=== PATIENT | male | born 1970 | race Two or more races ===

== ENCOUNTER 2025-07-21 22:59 | Inpatient (IN) | payer MEDICAID, OTHER ==
[~2025-07-21] VITALS: Ht 175.3 cm; Wt 108.0 kg
[2025-07-21 23:40] LABS: Hematocrit 43.6 % (41.0-53.0); Hemoglobin 14.8 g/dL (13.5-17.5); Mean Corpuscular Hemoglobin 28.8 pg (28.0-32.0); Mean Corpuscular Volume 84.8 fL (80.0-100.0); Nucleated Red Blood Cells % 0.0 %
[2025-07-21] MEDS: SODIUM CHLORIDE 0.9% 1,000 ML IV ONE (23:41)
[2025-07-21 23:47] LABS: Anion Gap 13 (5-15); Carbon Dioxide 24 mmol/L (20-31); Chloride 106 mmol/L (98-107); Potassium 3.7 mmol/L (3.5-5.1); Sodium 143 mmol/L (136-145)
[2025-07-21 23:48] LABS: Calcium 9.7 mg/dL (8.7-10.4)
[2025-07-21 23:53] LABS: BUN/Creatinine Ratio 10.2 (10.0-20.0); Blood Urea Nitrogen 10 mg/dL (9-23)
[2025-07-21 23:54] LABS: Glucose 121 mg/dL (74-106); Lipase 55 U/L (12-53)
[2025-07-21 23:58] LABS: Lactic Acid w/Reflex 2.6 mmol/L (0.4-2.0)
[2025-07-22 00:07] VITALS: PULSE 91; RESP 17; O2SAT 95
[2025-07-22] MEDS: SODIUM CHLORIDE 0.9% 1,000 ML IV ONE (00:21)
--- NOTE | 2025-07-22 01:30 | ED.PDOC ---
History of Present Illness HPI Comments This patient is a 55-year-old male who arrives the ED today via EMS for evaluation of a seizure event that occurred at home approximately 1 hour prior to arrival. Patient utilize his Vimpat for seizure control and states that is he has been medication compliant. I was able to have a discussion with the daughter who confirmed his medication compliance. Patient appears to have some reduced cognition which according to the daughters related to a prior event. Daughter was nonspecific. Patient was hypertensive and tachycardic at arrival. Chief Complaint: Seizure Time Seen by MD: 23:01 Reviewed Notes: Nurses Notes, Overhauler Helper Notes Allergies: Coded Allergies: NO KNOWN ALLERGIES (Unverified , 07/21/25) Information Source: Patient, Emergency Med Personnel Mode of Arrival: EMS Severity: Moderate Timing: Minutes Duration: Minutes Prehospital treatment: Nurse Practitioner Hospitalist Past Medical History PAST MEDICAL HISTORY: HTN, Seizures Surgical History: Denies all surgeries Family History Family History: Reviewed,noncontributory to illness, No family hx of Cancer, No family hx of DM, No family hx of Heart ken, No family hx of HTN, No family hx of Kidney ken, No family hx of Liver ken, No family hx of Lung ken, No family hx of Stroke Social History Smoker: Non-Smoker Alcohol: Denies ETOH Use Drugs: Denies Drug Use Lives In: Home Constitutional: reports: weakness; denies: chills, diaphoresis, fatigue, fever, malaise, sweats, others EENTM: denies: blurred vision, double vision, ear bleeding, ear discharge, ear drainage, ear pain, ear ringing, eye pain, eye redness, hearing loss, mouth pain, mouth swelling, nasal discharge, nose bleeding, nose congestion, nose pain, photophobia, tearing, throat pain, throat swelling, voice changes, others Respiratory: denies: cough, hemoptysis, orthopnea, SOB at rest, shortness of breath, SOB with excertion, stridor, wheezing, others Cardiovascular: denies: chest pain, dizzy spells, diaphoresis, Dyspnea on exertion, edema, irregular heart beat, left arm pain, lightheadedness, palpitations, PND, syncope, others Gastrointestinal: denies: abdomen distended, abdominal pain, blood streaked bowels, constipated, diarrhea, dysphagia, difficulty swallowing, hematemesis, melena, nausea, poor appetite, poor fluid intake, rectal bleeding, rectal pain, vomiting, others Genitourinary: denies: burning, dysuria, flank pain, frequency, hematuria, incontinence, penile discharge, penile sore, pain, testicle pain, testicle swelling, urgency, others Neurological: reports: seizure; denies: dizziness, fainting, headache, left sided numbness, left sided weakness, numbness, paresthesia, pre-existing deficit, right sided numbness, right sided weakness, speech problems, tingling, tremors, weakness, others Integumetry: denies: bruises, change in color, change in hair/nails, dryness, laceration, lesions, lumps, rash, wounds, others Allergic/Immunocompromised: denies: Difficulty Healing, Frequent Infections, Hives, Itching, others Hematologic/Lymphatic: denies: anemia, blood clots, easy bleeding, easy bruising, swollen glands, others Endocrine: denies: excessive hunger, excessive sweating, excessive thirst, excessive urination, flushing, intolerance to cold, intolerance to heat, unexplained weight gain, unexplained weight loss, others Psychiatric: denies: anxiety, bipolar disorder, depression, hopeless, panic disorder, schizophrenia, sleepless, suicidal, others Physical Exam General Appearance: Mild Distress (Patient appears weak and confused at time of evaluation.), Normal HEENT: Head (Unremarkable cranial evaluation. No signs of trauma. No skull depressions or deformities.), Normal ENT Inspection, Pharynx Normal, TMs Normal Neck: Full Range of Motion, Non-Tender, Normal, Normal Inspection Respiratory: Chest Non-Tender, Lungs Clear, No Accessory Muscle Use, No Respiratory Distress, Normal Breath Sounds Cardiovascular: No Edema, No JVD, No Murmur, No Gallop, Normal Peripheral Pulses, Regular Rate/Rhythm Breast Exam: Deferred Gastrointestinal: No Organomegaly, Non Tender, No Pulsatile Mass, Normal Bowel Sounds, Soft Genitalia: Deferred Pelvic: Deferred Rectal: Deferred Extremities: No calf tenderness, No pedal edema Neurologic: Disoriented Cerebellar Function: NOT DONE Reflexes: NOT DONE Skin: Dry, Normal Color, Warm Lymphatic: No Adenopathy Was a procedure done? Was a procedure done?: No Differential Dx Considerations may include: Seizure, intracranial neoplasm, sepsis, electrolyte abnormality, medication noncompliant X-Ray, Labs, Meds, VS Vital Signs Date Time Temp Pulse Resp B/P (MAP) Pulse Ox O2 Delivery O2 Flow Rate FiO2 07/22/25 00:07 91 17 95 Room Air* 0 21 07/22/25 00:07 91 17 138/102 (114) 95 07/21/25 22:59 98.0 109 18 158/100 96 98.0 Lab Test 07/22/25 00:29 07/22/25 00:12 07/21/25 23:23 Range/Units Troponin I High Sensitivity < 3 L < 3 L </=54 ng/L POC Glucose 113 H 70-106 mg/dl White Blood Count 7.5 4.4-10.8 10^3/uL Red Blood Count 5.14 4.5-5.90 10^6/uL Hemoglobin 14.8 13.5-17.5 g/dL Hematocrit 43.6 41.0-53.0 % Mean Corpuscular Volume 84.8 80.0-100.0 fL Mean Corpuscular Hemoglobin 28.8 28.0-32.0 pg Mean Corpuscular Hemoglobin Concent 34.0 32.0-36.0 g/dL Red Cell Distribution Width 13.3 11.8-14.3 % Platelet Count 189 140-450 10^3/uL Mean Platelet Volume 8.7 6.9-10.8 fL Neutrophils (%) (Auto) 66.4 37.0-80.0 % Lymphocytes (%) (Auto) 23.3 10.0-50.0 % Monocytes (%) (Auto) 8.5 0.0-12.0 % Eosinophils (%) (Auto) 1.5 0.0-7.0 % Basophils (%) (Auto) 0.3 0.0-2.0 % Neutrophils # (Auto) 5.0 1.6-8.6 10 ^3/uL Lymphocytes # (Auto) 1.8 0.4-5.4 10 ^3/uL Monocytes # (Auto) 0.6 0-1.3 10 ^3/uL Eosinophils # (Auto) 0.1 0-0.8 10 ^3/uL Basophils # (Auto) 0 0-0.2 10 ^3/uL Nucleated Red Blood Cells 0.0 % Sodium Level 143 136-145 mmol/L Potassium Level 3.7 3.5-5.1 mmol/L Chloride Level 106 98-107 mmol/L Carbon Dioxide Level 24 20-31 mmol/L Anion Gap 13 5-15 Blood Urea Nitrogen 10 9-23 mg/dL Creatinine 0.98 0.700-1.30 mg/dL Glomerular Filtration Rate Calc 91 >90 mL/min BUN/Creatinine Ratio 10.2 10.0-20.0 Serum Glucose 121 H 74-106 mg/dL Lactic Acid Level 2.6 *H 0.4-2.0 mmol/L Calcium Level 9.7 8.7-10.4 mg/dL B-Type Natriuretic Peptide 0.85 0-100 pg/mL Lipase 55 H 12-53 U/L Current Medications Medications (Trade) Dose Ordered Sig/Vahid Route Start Time Stop Time Status Last Admin Sodium Chloride 1,000 ml @ 250 mls/hr Q4H ONCE IV 07/21/25 23:15 07/22/25 00:06 DC 07/21/25 23:41 Sodium Chloride 1,000 ml @ 1,000 mls/hr Q1H ONCE IV 07/22/25 00:15 07/22/25 01:14 DC 07/22/25 00:21 X-Ray, Labs, Meds, VS Comment All studies performed the ED were evaluated by me personally. Multiple studies were pending at time of this note. Serum laboratories revealed a elevated lactic acid and elevated lipase. Patient will be admitted for neurological evaluation. Additional studies will be reviewed once returned. Time of 1ST Reevaluation: 01:36 Reevaluation 1ST: Improved Consultation: PCP, Neurology Patient Education/Counseling: Diagnosis, Treatment Family Education/Counseling: Diagnosis, Treatment SEPSIS Sepsis Screen Date sepsis recognized/suspect: Jul 21, 2025 Time Sepsis recognized/suspect: 2258 Recent Procedure: No On Antibiotic Therapy: No Respiratory Rate >20: No Heart Rate >90: No Temp<36 C (96.8 F) or >38.3 C: No SBP <90 or MAP <65 mmHG: No New Acute Mental Status Change: No Is the patient on CPAP, BIPAP,: No Physician Orders Heplock Iv (07/21/25 ) Urinalysis (07/21/25 23:06) Troponin-I Hs (07/22/25 02:06) Electrocardigram (07/21/25 23:06) Head Without Contrast (07/22/25 01:31) *Consult Dr. Bettie Bhandari (07/22/25 01:31) Vital Signs Date Time Temp Pulse Resp B/P (MAP) Pulse Ox O2 Delivery O2 Flow Rate FiO2 07/22/25 00:07 91 17 95 Room Air* 0 21 07/22/25 00:07 91 17 138/102 (114) 95 07/21/25 22:59 98.0 109 18 158/100 96 98.0 Laboratory Tests Test 07/21/25 23:23 Lactic Acid Level 2.6 mmol/L (0.4-2.0) *H White Blood Count 7.5 10^3/uL (4.4-10.8) Medications Medications Dose Ordered Sig/Vahid Route Start Time Stop Time Status Last Admin Dose Admin Sodium Chloride 1,000 ml @ 250 mls/hr Q4H ONCE IV 07/21/25 23:15 07/22/25 00:06 DC 07/21/25 23:41 Sodium Chloride 1,000 ml @ 1,000 mls/hr Q1H ONCE IV 07/22/25 00:15 07/22/25 01:14 DC 07/22/25 00:21 Departure 1 Departure Time of Disposition: 01:37 Impression: Primary Impression: Seizure Additional Impressions: Elevated lactic acid level Elevated lipase Disposition: ADMITTED INPATIENT Condition: Fair Discharged With: Self Critical Care Note Critical Care Time?: No Stability Stability form required: No Heart Score Heart Score: Heart Score Response (Comments) Value History N/A 0 EKG N/A 0 Age N/A 0 Risk Factors N/A 0 Troponin N/A 0 Total 0 REZA REYES PAC Jul 22, 2025 01:30
--- NOTE | 2025-07-22 02:40 | DVH ---
EXAM: CT HEAD WITHOUT CONTRAST INDICATION: Seizure TECHNIQUE: CT of the head without intravenous contrast. Radiation Dose : 1. Head: CT Dose: CTDI volume is 60.6 mGy. Dose-length product is 850.16 mGy*cm The dose indicators for CT are the volume Computed Tomography (CT) Dose Index (CTDIvol) and the Dose Length Product (DLP), and are measured in units of mGy and mGy-cm, respectively. These indicators are not patient dose, but values generated from the CT scanner acquisition factors. The report includes radiation exposure data for exposures received during this examination. COMPARISON: None FINDINGS: Brain: No evidence of acute hemorrhage. Lloyd cerebral edema crossing chung-white matter in the l eft superior frontal sinus, underlying a mario hole craniotomy. No pneumocephalus. CSF Spaces: Normal morphology of the lateral ventricles and basilar cisterns. Mild asymmetric sulcal effacement of the left frontoparietal lobes centered around the parenchymal abnormality detailed abov e. Bones/Soft Tissues: No acute osseous findings. Left superior frontal mario hole craniotomy. Orbits/Sinuses/Mastoids: Unremarkable as visualized. IMPRESSION: 1. No acute intracranial abnormality. 2. Left frontal lobe edema and local regional mass effect underlying a mario hole craniotomy, which ap pears nonacute. Correlate with history. Radiation optimization: All CT scans at this facility use at least one of these dose optimization brunilda hniques: automated exposure control mA and/or kV adjustment per patient size (includes targeted exam s where dose is matched to clinical indication) or iterative reconstruction.
[2025-07-22] MEDS ORDERED: DOCUSATE SOD 100 MG CAP PO PRN (04:00)
[2025-07-22] MEDS ORDERED: LORazepam 2MG/ML-1ML VIAL IV PRN (04:00)
[2025-07-22] MEDS ORDERED: HYDROcodone-ACET 5/325MG TAB PO PRN (04:00)
[2025-07-22] MEDS ORDERED: ONDANSETRON HCL 4 MG/2 ML VIAL IV PRN (04:00)
[2025-07-22] MEDS ORDERED: ACETAMINOPHEN 325 MG TAB PO PRN (04:00)
--- NOTE | 2025-07-22 04:18 | DVHHP2 ---
History of Present Illness Reason for Visit: Seizure History of Present Illness The patient is a 55-year-old male with past medical history of hypertension and seizures who presented to [facility] ED for evaluation of seizures activity. As reported by EMS, patient was noted to have seizures activity at home, currently compliant on Vimpat for seizures control. Patient appears to have some reduced cognition which according to the daughters related to a prior event, but non was nonspecific Patient was seen and evaluated in the ED, laboratory data shows WBC 7.5, platelets 189, sodium 143, potassium 3.7, BUN 10, creatinine 0.98, glucose 121, calcium 9.7, lactic acid 2.6 trending down to 1.5, BNP 0.85, lipase 55, blood pressure 153/91, heart rate 74, temperature 98.0 F, O2 saturation 95% on oxygen. Head CT showed no acute intracranial abnormality; left frontal lobe edema and local regional mass effect underlying a mario hole craniotomy, which appears nonacute correlate with history. Please see medication orders section in the computer. On my assessment, patient patient not responding to question, no diaphoresis, currently on oxygen, no diarrhea, nausea, vomiting, no fever, no chills. Patient was admitted for further evaluation and medical management. Past Medical History HTN, Seizures Past Surgical History Craniotomy Family History Reviewed, noncontributory to the management of this case. Past Social History The patient lives at home, denies smoking, alcohol or illicit drugs abuse. Review of Systems Constitutional: Yes: Weakness; No: Fever, Chills, Sweats, Malaise, Other Eyes: No: Pain, Vision change, Conjunctivae inflammation, Eyelid inflammation, Other, Redness ENT: No: Ear pain, Ear discharge, Nose pain, Nose discharge, Nose congestion, Mouth pain, Mouth swelling, Throat pain, Throat swelling, Other Respiratory: No: Cough, Dry, Shortness of breath, SOB with excertion, Wheezing, Hemoptysis, Pleuritic Pain, Sputum, Wheezing, Other Cardiovascular: No: Chest Pain, Palpitations, Orthopnea, Paroxysmal Noc. Dyspnea, Edema, Lt Headedness, Other Gastrointestinal: No: Nausea, Vomiting, Abdominal Pain, Diarrhea, Constipation, Melena, Hematochezia, Other Genitourinary: No Dysuria, No Frequency, No Incontinence, No Hematuria, No Retention, No Other Musculoskeletal: No: other, neck pain, shoulder pain, arm pain, back pain, hand pain, leg pain, foot pain Skin: No: Rash, Lesions, Jaundice, Bruising, Other Neurological: Seizures; No: Weakness, Numbness, Incoordination, Change in speech, Confusion, Other Allergies: Coded Allergies: NO KNOWN ALLERGIES (Unverified , 07/21/25) Medications Current Medications Medications Dose Ordered Sig/Vahid Route Start Time Stop Time Status Last Admin Dose Admin Famotidine 20 mg Q12HR IV 07/22/25 10:00 UNV Lorazepam 0.5 mg Q8HP PRN IV 07/22/25 04:00 UNV Clonidine HCl 0.1 mg Q4HP PRN PO 07/22/25 04:00 UNV Losartan Potassium 50 mg DAILY PO 07/22/25 10:00 UNV Patient Own Medication 150 mg BID PO 07/22/25 10:00 UNV Sodium Chloride 10 ml Q8HR IV 07/22/25 06:00 UNV Acetaminophen/ Hydrocodone Bitart 1 tab Q4HP PRN PO 07/22/25 04:00 UNV Ondansetron HCl 4 mg Q4HP PRN IV 07/22/25 04:00 UNV Docusate Sodium 100 mg BIDPRN PRN PO 07/22/25 04:00 UNV Acetaminophen 650 mg Q6HP PRN PO 07/22/25 04:00 UNV Nitroglycerin 0.4 mg Q5MINP PRN SL 07/22/25 04:30 UNV Morphine Sulfate 2 mg Q30M PRN IV 07/22/25 04:30 UNV Exam Vital Signs Vital Signs Date Time Temp Pulse Resp B/P (MAP) Pulse Ox O2 Delivery O2 Flow Rate FiO2 07/22/25 03:00 73 24 153/91 (111) 95 07/22/25 00:07 Room Air* 0 21 07/21/25 22:59 98.0 98.0 General Appearance: Alert, Cooperative, No acute distress, Other (Oriented x2) HEENT: Atraumatic, PERRLA, EOMI, Mucous membr. moist/pink Respiratory: Normal air movement Cardiovascular: Regular rate, Normal S1, Normal S2, No murmurs Abdominal: Normal bowel sounds, Soft, No tenderness, No hepatospenomegaly, No masses Extremities: No clubbing, No cyanosis, No edema, Normal pulses, No tenderness/swelling Skin: No rashes, No breakdown, No significant lesion Neuro: Normal speech, Normal tone, Sensation intact, Cranial nerves 3-12 NL, Reflexes 2+, Other (Generalized weakness) Psych/Mental Status: Mental status NL, Mood NL Labs/Xrays Labs Test 07/22/25 02:48 07/22/25 00:12 07/21/25 23:23 Range/Units Lactic Acid Level 1.5 0.4-2.0 mmol/L Troponin I High Sensitivity < 3 L </=54 ng/L POC Glucose 113 H 70-106 mg/dl White Blood Count 7.5 4.4-10.8 10^3/uL Red Blood Count 5.14 4.5-5.90 10^6/uL Hemoglobin 14.8 13.5-17.5 g/dL Hematocrit 43.6 41.0-53.0 % Mean Corpuscular Volume 84.8 80.0-100.0 fL Mean Corpuscular Hemoglobin 28.8 28.0-32.0 pg Mean Corpuscular Hemoglobin Concent 34.0 32.0-36.0 g/dL Red Cell Distribution Width 13.3 11.8-14.3 % Platelet Count 189 140-450 10^3/uL Mean Platelet Volume 8.7 6.9-10.8 fL Neutrophils (%) (Auto) 66.4 37.0-80.0 % Lymphocytes (%) (Auto) 23.3 10.0-50.0 % Monocytes (%) (Auto) 8.5 0.0-12.0 % Eosinophils (%) (Auto) 1.5 0.0-7.0 % Basophils (%) (Auto) 0.3 0.0-2.0 % Neutrophils # (Auto) 5.0 1.6-8.6 10 ^3/uL Lymphocytes # (Auto) 1.8 0.4-5.4 10 ^3/uL Monocytes # (Auto) 0.6 0-1.3 10 ^3/uL Eosinophils # (Auto) 0.1 0-0.8 10 ^3/uL Basophils # (Auto) 0 0-0.2 10 ^3/uL Nucleated Red Blood Cells 0.0 % Sodium Level 143 136-145 mmol/L Potassium Level 3.7 3.5-5.1 mmol/L Chloride Level 106 98-107 mmol/L Carbon Dioxide Level 24 20-31 mmol/L Anion Gap 13 5-15 Blood Urea Nitrogen 10 9-23 mg/dL Creatinine 0.98 0.700-1.30 mg/dL Glomerular Filtration Rate Calc 91 >90 mL/min BUN/Creatinine Ratio 10.2 10.0-20.0 Serum Glucose 121 H 74-106 mg/dL Calcium Level 9.7 8.7-10.4 mg/dL B-Type Natriuretic Peptide 0.85 0-100 pg/mL Lipase 55 H 12-53 U/L PATIENT: KAM FOSTER ACCT: [id number] UNIT: [id number] : 1970 LOC: ER ROOM / BED: / AGE / SEX: 55 / M ADM STATUS: REG ER SERVICE 013 ORDERING PHYSICIAN: REZA REYES PAC PROCEDURE(s): HWOCT - HEAD WITHOUT CONTRAST REASON: Seizure ORDER NUMBER(s): [id number], ACCESSION NUMBER(s): [id number] EXAM: CT HEAD WITHOUT CONTRAST INDICATION: Seizure TECHNIQUE: CT of the head without intravenous contrast. Radiation Dose: 1. Head: CT Dose: CTDI volume is 60.6 mGy. Dose-length product is 850.16 mGy*cm The dose indicators for CT are the volume Computed Tomography (CT) Dose Index (CTDIvol) and the Dose Length Product (DLP), and are measured in units of mGy and mGy-cm, respectively. These indicators are not patient dose, but values generated from the CT scanner acquisition factors. The report includes radiation exposure data for exposures received during this examination. COMPARISON: None FINDINGS: Brain: No evidence of acute hemorrhage. [place] cerebral edema crossing chung- white matter in the left superior frontal sinus, underlying a mario hole craniotomy. No pneumocephalus. CSF Spaces: Normal morphology of the lateral ventricles and basilar cisterns. Mild asymmetric sulcal effacement of the left frontoparietal lobes centered around the parenchymal abnormality detailed above. Bones/Soft Tissues: No acute osseous findings. Left superior frontal mario hole craniotomy. Orbits/Sinuses/Mastoids: Unremarkable as visualized. IMPRESSION: 1. No acute intracranial abnormality. 2. Left frontal lobe edema and local regional mass effect underlying a mario hole craniotomy, which appears nonacute. Correlate with history. SEPSIS Sepsis Screen Date sepsis recognized/suspect: Jul 21, 2025 Time Sepsis recognized/suspect: 2258 Recent Procedure: No On Antibiotic Therapy: No Respiratory Rate >20: No Heart Rate >90: No Temp<36 C (96.8 F) or >38.3 C: No SBP <90 or MAP <65 mmHG: No New Acute Mental Status Change: No Is the patient on CPAP, BIPAP,: No Physician Orders Heplock Iv (07/21/25 ) Urinalysis (07/21/25 23:06) Electrocardigram (07/21/25 23:06) Head Without Contrast (07/22/25 01:31) *Consult Dr. Bettie Bhandari (07/22/25 01:31) Complete Blood Count (07/22/25 04:00) Comprehensive Metabolic Panel (07/22/25 04:00) Famotidine Injection (Pepcid Injection) (07/22/25 10:00) Lorazepam 2mg/Ml Inj (Ativan Inj) (07/22/25 04:00) Clonidine Hcl Tablet (Catapres Tablet) (07/22/25 04:00) Losartan Tablet (Cozaar Tablet) (07/22/25 10:00) (Nf) Lacosamide (07/22/25 10:00) Allergies (07/22/25 03:46) Code Status (07/22/25 03:46) Sodium Chloride Lock (Saline Lock Ns) (07/22/25 06:00) Oxygen Per Hour (07/22/25 03:46) Hydrocodone-Acet 5/325mg Tab ([place] 5/32 (07/22/25 04:00) Ondansetron Hcl (Zofran) (07/22/25 04:00) Docusate Sodium Capsule (Colace Capsule) (07/22/25 04:00) Fall Risk Precautions In Place QSHIFT (07/22/25 03:46) Complete Blood Count (07/23/25 04:00) Comprehensive Metabolic Panel (07/23/25 04:00) Condition: Serious (07/22/25 03:46) Acetaminophen Tablet (Tylenol Tablet) (07/22/25 04:00) Maintain Bed Rest (07/22/25 03:46) Sequential Compression Device (07/22/25 ) Cardiac Diet-2gna,Lofat,Lochol (07/22/25 Breakfast) Admit (07/22/25 04:16) Nitroglycerin Sublingual (Ntrostat Subli (07/22/25 04:30) Morphine Sulfate Injection (07/22/25 04:30) Stat Ekg For Chest Pain (07/22/25 04:16) Notify Of Changes From Base (07/22/25 04:16) Sports Statistician For 24 Hours (07/22/25 04:16) Emergency Dysrhythmia Protocol (07/22/25 04:16) Rhythm Strips Once Every Shift (07/22/25 04:16) Oxygen By Nasal Cannula (07/22/25 04:16) Vital Signs Date Time Temp Pulse Resp B/P (MAP) Pulse Ox O2 Delivery O2 Flow Rate FiO2 07/22/25 03:00 73 24 153/91 (111) 95 07/22/25 01:45 129/84 07/22/25 01:00 79 20 124/91 (102) 98 07/22/25 00:07 91 17 95 Room Air* 0 21 07/22/25 00:07 91 17 138/102 (114) 95 07/21/25 22:59 98.0 109 18 158/100 96 98.0 Laboratory Tests Test 07/21/25 23:23 07/22/25 02:48 Lactic Acid Level 2.6 mmol/L (0.4-2.0) *H 1.5 mmol/L (0.4-2.0) White Blood Count 7.5 10^3/uL (4.4-10.8) Medications Medications Dose Ordered Sig/Vahid Route Start Time Stop Time Status Last Admin Dose Admin Sodium Chloride 1,000 ml @ 250 mls/hr Q4H ONCE IV 07/21/25 23:15 07/22/25 00:06 DC 07/21/25 23:41 250 MLS/HR Sodium Chloride 1,000 ml @ 1,000 mls/hr Q1H ONCE IV 07/22/25 00:15 07/22/25 01:14 DC 07/22/25 00:21 1,000 MLS/HR Assessment/Plan Assessment/Plan Seizure disorder Elevated lipase Elevated lactic acid level Plan 1. Admit to telemetry unit 2. Breathing treatment 3. Pain control management 4. Management of fluids and electrolytes 5. Consultation for Neurology 6. Diagnostic tests head CT 7. DVT prophylaxis-on SCDs 8. Repeat labs CBC, CMP in a.m. 9. Continue with current medical management 10. Treatment plan discussed with patient and RN. Patient verbalized understanding. Plan discussed with: Patient, Other (RN) My Orders Orders - DOTTY WARREN DNP Procedure Category Date Status Time Complete Blood Count LAB 07/22/25 Logged 04:00 Comprehensive LAB 07/22/25 Logged Metabolic Panel 04:00 Famotidine Injection PHA 07/22/25 Logged (Pepcid Injection) 10:00 Lorazepam 2mg/Ml Inj PHA 07/22/25 Logged (Ativan Inj) 04:00 Clonidine Hcl Tablet PHA 07/22/25 Logged (Catapres Tablet) 04:00 Losartan Tablet PHA 07/22/25 Logged (Cozaar Tablet) 10:00 (Nf) Lacosamide PHA 07/22/25 Logged 10:00 Allergies JAROD 07/22/25 In Process 03:46 Code Status CODE 07/22/25 Transmitted 03:46 Sodium Chloride Lock PHA 07/22/25 Logged (Saline Lock Ns) 06:00 Oxygen Per Hour RT 07/22/25 Transmitted 03:46 Hydrocodone-Acet PHA 07/22/25 Logged 5/325mg Tab ([place] 04:00 Ondansetron Hcl PHA 07/22/25 Logged (Zofran) 04:00 Docusate Sodium PHA 07/22/25 Logged Capsule (Colace 04:00 Fall Risk Precautions JAROD 07/22/[address] 03:46 Complete Blood Count LAB 07/23/25 Verified 04:00 Comprehensive LAB 07/23/25 Verified Metabolic Panel 04:00 Condition: Serious JAROD 07/22/25 In Process 03:46 Acetaminophen Tablet PHA 07/22/25 Logged (Tylenol Tablet) 04:00 Maintain Bed Rest JAROD 07/22/25 In Process 03:46 Sequential JAROD 07/22/25 In Process Compression Device Cardiac DIET 07/22/25 Transmitted Diet-2gna,Lofat,Lochol Breakfast Admit ADMIT 07/22/25 Transmitted 04:16 Nitroglycerin PHA 07/22/25 Logged Sublingual (Ntrostat 04:30 Morphine Sulfate PHA 07/22/25 Logged Injection 04:30 Stat Ekg For Chest [facility] 07/22/25 In Process Pain 04:16 Notify Md Of Changes [facility] 07/22/25 In Process From Base 04:16 Sports Statistician For [facility] 07/22/25 Transmitted 24 Hours 04:16 Emergency Dysrhythmia [facility] 07/22/25 Transmitted Protocol 04:16 Rhythm Strips Once [facility] 07/22/25 Transmitted Every Shift 04:16 Oxygen By Nasal 07/22/25 Transmitted Cannula 04:16 Problem List: (1) Seizure disorder (2) Elevated lipase (3) Elevated lactic acid level Date of Service: Jul 22, 2025 Billing Provider: DOTTY WARREN DNP Common Visit Codes: [id number] INP/OBS CARE (HIGH) DOTTY WARREN DNP Jul 22, 2025 04:18
[2025-07-22] MEDS ORDERED: MORPHINE SULFATE INJ 2 MG/ml SYRG IV PRN (04:30)
[2025-07-22] MEDS ORDERED: NITROGLYCERIN 0.4 MG SL TAB SL PRN (04:30)
[2025-07-22 04:55] LABS: Alanine Aminotransferase 15 U/L (7-40); Albumin 3.8 g/dL (3.2-4.8); Alkaline Phosphatase 76 U/L (46-116); Anion Gap 12 (5-15); BUN/Creatinine Ratio 9.9 (10.0-20.0); Blood Urea Nitrogen 9 mg/dL (9-23); Calcium 9.1 mg/dL (8.7-10.4); Carbon Dioxide 22 mmol/L (20-31); Glucose 106 mg/dL (74-106); Potassium 3.7 mmol/L (3.5-5.1); Sodium 142 mmol/L (136-145); Total Protein 6.3 g/dL (5.7-8.2)
[2025-07-22 04:56] LABS: Bilirubin, Total 0.4 mg/dL (0.2-1.0)
[2025-07-22 04:59] LABS: Chloride 108 mmol/L (98-107)
[2025-07-22] MEDS: SODIUM CHLOR 0.9% PF (SALINE LOCK) 10ML VIAL/SYR IV SCH (06:19)
[2025-07-22 06:33] LABS: Urine Protein, UAD Negative (Negative)
[2025-07-22 08:30] VITALS: BP 158/100; PULSE 88; RESP 16; TEMP 98.6; O2SAT 97
[2025-07-22 09:30] VITALS: PULSE 88; RESP 16; O2SAT 97
[2025-07-22] MEDS: FAMOTIDINE (10MG/ML) 2ML VL IV SCH (10:19)
[2025-07-22] MEDS: LACOSAMIDE 50 MG TAB PO SCH (10:20)
[2025-07-22] MEDS: LOSARTAN POTASSIUM 50 MG TAB PO SCH (10:20)
--- NOTE | 2025-07-22 11:34 | BSKYNEURO ---
[facility] Note # Demographics Consult Type: General Neurology Patient Location: Emergency Room First Name: goldie Last Name: milo Date of : 1970 Age: 55 Gender: Male Facility: [facility] Time of Initial Page (): 07/22/2025 10:42 First Contact with Site (): 07/22/2025 10:42 # HPI Chief Complaint: - seizure History: 55 y/o M with a PMHx of seizure, presented with a generalized tonic clonic seizure, which occurred last night, witnessed by family. He is now back to baseline and feeling fine. He says his last seizure was over 1 week ago and he gets them frequently. He is on Vimpat but says he feels dizzy at times on it. He has been tried on Keppra in the past but said he felt too sedated so he was taken off of it. He endorses compliance with his medication. He denies recent fevers or flu like symptoms. # Scores Time of exam and NIHSS (): 07/22/2025 11:24 Level of Consciousness 1a: [0] = Alert; keenly responsive LOC Questions 1b: [0] = Answers both questions correctly LOC Commands 1c: [0] = Performs both tasks correctly Best Gaze 2: [0] = Normal Visual 3: [0] = No visual loss Facial Palsy 4: [0] = Normal symmetrical movements Motor Arm Left 5a: [0] = No drift Motor Arm Right 5b: [0] = No drift Motor Leg Left 6a: [0] = No drift Motor Leg Right 6b: [0] = No drift Limb Ataxia 7: [0] = Absent Sensory 8: [0] = Normal Best Language 9: [0] = No aphasia Dysarthria 10: [0] = Normal Extinction and Inattention 11: [0] = No abnormality NIHSS Total: 0 # Exam SBP: 147 DBP: 92 # PMH-FH-SH Past Medical History: prior brain tumor Past Surgical History: - craniotomy Medications: Vimpat 150mg BID # Data Head CT: left frontal lobe edema and local regional mass effect underlying a mario hole craniotomy, which appears nonacute # Assessment Impression: - Seizure lab work unrevealing thus far, appears to be breakthrough seizure # Plan Labs: - urine drug screen - TSH - Ammonia - B12 - liver function tests Imaging: (urgency: routine): - MRI Brain with AND without contrast Medication: Continue Vimpat 150mg BID (although we can increase to 200mg given pt endorses dizziness, would not increase further) Zonisamide 50mg QHS with plans to titrate up as an outpatient if tolerated Other: - If patient has any neurological deterioration please call me back immediately - seizure precautions - telemetry monitoring - I have discussed my recommendations with the referring provider # Logistics Attestation of consult completion: The patient is located at: [facility]. Facility staff participated in the visit. I performed this telemedicine visit from my offsite office utilizing interactive 2 way audio and visual telecommunication technology at the request of the onsite emergency room provider. Total time spent in telemedicine encounter: I spent 30 minutes reviewing clinical data and/or imaging, obtaining history, examining the patient, communicating with the onsite care team, and in preparation of this report. # Demographics First Name: goldie Last Name: pedraza Facility: [facility] Electronically signed at 07/22/2025 11:34 ([place] Time) by Chantelle Garcia MD Yes CHANTELLE GARCIA MD Jul 22, 2025 11:34
[2025-07-22 23:00] VITALS: PULSE 89; RESP 16; O2SAT 95
[2025-07-23] VITALS (10 sets, daily range): BP systolic 124–143; BP diastolic 86–100; PULSE 70–102; RESP 16–20; TEMP 36.9; O2SAT 95–97
[2025-07-23] MEDS ORDERED: APIX5TAB PO ×2 (00:13→17:30)
[2025-07-23] MEDS: APIXABAN 5 MG TAB PO SCH (02:50)
[2025-07-23 07:02] LABS: Hematocrit 43.6 % (41.0-53.0); Hemoglobin 15.2 g/dL (13.5-17.5); Mean Corpuscular Hemoglobin 29.5 pg (28.0-32.0); Mean Corpuscular Volume 84.6 fL (80.0-100.0); Nucleated Red Blood Cells % 0.1 %
[2025-07-23 07:19] LABS: Alanine Aminotransferase 15 U/L (7-40); Albumin 4.0 g/dL (3.2-4.8); Alkaline Phosphatase 75 U/L (46-116); Anion Gap 9 (5-15); BUN/Creatinine Ratio 9.3 (10.0-20.0); Blood Urea Nitrogen 10 mg/dL (9-23); Calcium 9.4 mg/dL (8.7-10.4); Carbon Dioxide 28 mmol/L (20-31); Chloride 105 mmol/L (98-107); Glucose 97 mg/dL (74-106); Potassium 4.0 mmol/L (3.5-5.1); Sodium 142 mmol/L (136-145); Total Protein 6.7 g/dL (5.7-8.2)
[2025-07-23 07:20] LABS: Bilirubin, Total 0.5 mg/dL (0.2-1.0)
--- NOTE | 2025-07-23 17:41 | DVHDS2 ---
Discharge Summary Date of Admission Jul 22, 2025 at 04:16 Date of Discharge: Jul 23, 2025 Labs/Diagnostic Data: Laboratory Results Test 07/23/25 06:09 07/22/25 12:11 07/22/25 02:48 07/21/25 23:23 White Blood Count 7.3 10^3/uL (4.4-10.8) Red Blood Count 5.15 10^6/uL (4.5-5.90) Hemoglobin 15.2 g/dL (13.5-17.5) Hematocrit 43.6 % (41.0-53.0) Mean Corpuscular Volume 84.6 fL (80.0-100.0) Mean Corpuscular Hemoglobin 29.5 pg (28.0-32.0) Mean Corpuscular Hemoglobin Concent 34.9 g/dL (32.0-36.0) Red Cell Distribution Width 13.2 % (11.8-14.3) Platelet Count 181 10^3/uL (140-450) Mean Platelet Volume 9.0 fL (6.9-10.8) Neutrophils (%) (Auto) 65.9 % (37.0-80.0) Lymphocytes (%) (Auto) 23.8 % (10.0-50.0) Monocytes (%) (Auto) 7.6 % (0.0-12.0) Eosinophils (%) (Auto) 2.2 % (0.0-7.0) Basophils (%) (Auto) 0.5 % (0.0-2.0) Neutrophils # (Auto) 4.8 10 ^3/uL (1.6-8.6) Lymphocytes # (Auto) 1.7 10 ^3/uL (0.4-5.4) Monocytes # (Auto) 0.6 10 ^3/uL (0-1.3) Eosinophils # (Auto) 0.2 10 ^3/uL (0-0.8) Basophils # (Auto) 0 10 ^3/uL (0-0.2) Nucleated Red Blood Cells 0.1 % Sodium Level 142 mmol/L (136-145) Potassium Level 4.0 mmol/L (3.5-5.1) Chloride Level 105 mmol/L (98-107) Carbon Dioxide Level 28 mmol/L (20-31) Anion Gap 9 (5-15) Blood Urea Nitrogen 10 mg/dL (9-23) Creatinine 1.07 mg/dL (0.700-1.30) Glomerular Filtration Rate Calc 82 mL/min (>90) BUN/Creatinine Ratio 9.3 (10.0-20.0) Serum Glucose 97 mg/dL (74-106) Calcium Level 9.4 mg/dL (8.7-10.4) Total Bilirubin 0.5 mg/dL (0.2-1.0) Aspartate Amino Transferase (AST) 17 U/L (13-40) Alanine Aminotransferase (ALT) 15 U/L (7-40) Alkaline Phosphatase 75 U/L (46-116) Total Protein 6.7 g/dL (5.7-8.2) Albumin 4.0 g/dL (3.2-4.8) POC Glucose 145 mg/dl (70-106) Lactic Acid Level 1.5 mmol/L (0.4-2.0) Troponin I High Sensitivity < 3 ng/L (</=54) B-Type Natriuretic Peptide 0.85 pg/mL (0-100) Lipase 55 U/L (12-53) Test 07/21/25 06:00 Urine Color Colorless (Yellow) Urine Clarity Clear (Clear) Urine pH 6.5 (5.0-9.0) Urine Specific [place] 1.006 (1.001-1.035) Urine Protein Negative (Negative) Urine Ketones Negative (Negative) Urine Blood Negative /uL (Negative) Urine Nitrite Negative (Negative) Urine Bilirubin Negative (Negative) Urine Urobilinogen Normal mg/dL (Negative) Urine Leukocyte Esterase Negative /uL (Negative) Urine RBC None seen /hpf (0 - 3) Urine Microscopic WBC < 1 /HPF (0-3) Urine Squamous Epithelial Cells None seen /hpf (<5) Urine Bacteria None seen /hpf (None Seen) Urine Glucose Normal mg/dL (Normal) Other Laboratory Tests 07/23/25 06:09 Brief Hx & Hospital Course: 55-year-old male with a known history of hypertension, history of DVT currently on Eliquis, seizure disorder, previous history of craniotomy ABG initially presented to the hospital with a seizure-like activities at home. Patient is currently compliant on Vimpat for seizure control. Patient was eventually admitted. Patient was closely monitored there was no evidence of seizures. Patient is being discharged under stable condition on current home dose of Vimpat. Patient was recommended to return to ER if there is any concern. No driving while on seizure medications. Condition at Discharge: Stable Final Diagnosis/Problems List 1. Breakthrough seizure 2. Epilepsy 3. History of DVT currently on Eliquis Discharge Disposition: Home SNF Discharge Will this Physician continue t: No Discharge Instruct/Medications Diet: Cardiac 2g Na,low cholest Activity: See Comment Activity comment: No driving while on seizure medications Follow Up/Referral: Follow up with the PCP in one week Follow up with the Neurology in 1-2 weeks Medications: Lacosamide and zonisamide as prescribed Scheduled Apixaban Base (Eliquis), 5 MG PO BID Discharge Statement: "Patient was advised to return to the ER or call 911 if any headaches, dizziness, shortness of breath, chest pain, abdominal pain, bleeding, fevers, or worsening of medical condition. Patient was counseled about treatment plan, medications, possible side effects, patientverbalized understanding. All questions were answered to the best of my ability. This discharge took greater then 30 minutes in planning, reviewing documentation, counseling the patient, and discussing with other team members." ASSESSMENT ASSESSMENT Assessment 1. Breakthrough seizure 2. Epilepsy 3. History of DVT currently on Eliquis Date of Service: Jul 23, 2025 Billing Provider: ANTONIA GERARDO MD Common Visit Codes: 34720-CKF/OBS DISCH DAY >30min ANTONIA GERARDO MD Jul 23, 2025 17:40
== END 2025-07-23 21:30 | disposition home or self-care (01) | DRG 53 ==
LOC: ER 22:59 → EDBD 22:59 → OVERFLOW 07-22 04:16 → TELE-EAST 07-23 02:03
PROVIDERS: ADMIT Internal Medicine; ATTEND Internal Medicine
DX: G40.909 Epilepsy, unspecified, not intractable, without status epilepticus (principal); E87.20 Acidosis, unspecified; I10 Essential (primary) hypertension; Z79.01 Long term (current) use of anticoagulants; Z82.49 Family history of ischemic heart disease and other diseases of the circulatory system; Z83.3 Family history of diabetes mellitus; Z86.718 Personal history of other venous thrombosis and embolism; Z79.899 Other long term (current) drug therapy
CPT/HCPCS: 36415; 70450; 80048; 80053; 81001; 82962; 83605; 83690; 83880; 84484; 85025; G0378; J3490